=== PATIENT | female | born 1945 | race African-American/Black ===

== ENCOUNTER 2016-12-13 18:00 | Emergency (ER) | payer OTHER ==
[~2016-12-13] VITALS: Ht 160 cm; Wt 48.6 kg
[~2016-12-13 18:00] MED LIST: FERR-89 PO; MULT-71 PO; PANT40TA25 PO; PHENY100 PO
[2016-12-13] MEDS ORDERED: DULO30CA2 PO (18:19)
[2016-12-13] MEDS ORDERED: ACET1TAB12 PO (18:19)
[2016-12-13] MEDS ORDERED: OLAN10TA3 PO (18:19)
[2016-12-13 19:59] LABS: EOSINOPHILS % (AUTO) 0 % (1.0-6.0); HEMOGLOBIN 8.8 g/dL (12.0-16.0); LYMPHOCYTES # (AUTO) 1.3 K/uL (1.0-4.8); LYMPHOCYTES % (AUTO) 25.6 % (22.0-44.0); MEAN CORPUSCULAR HEMOGLOBIN 21.4 pg (26.0-34.0); MEAN CORPUSCULAR HGB CONC 30.2 G/dL (31.0-37.0); MEAN CORPUSCULAR VOLUME 71 fL (80-100); MONOCYTES # (AUTO) 0.9 K/uL (0.1-1.0); MONOCYTES % (AUTO) 18.6 % (2.0-9.0); NEUTROPHILS # (AUTO) 2.7 K/uL (1.8-7.7); NEUTROPHILS % (AUTO) 54.8 % (40.0-70.0); PLATELET COUNT (AUTO) 401 K/uL (150-450); RED BLOOD CELL COUNT(AUTO) 4.09 MIL/uL (4.00-5.20); RED CELL DISTRIBUTION WIDTH 17.8 % (11.5-14.5)
[2016-12-13 20:21] LABS: ANION GAP 8 mmol/L (8-16); CALCIUM, TOTAL 8.5 mg/dL (8.8-10.5); CARBON DIOXIDE 25 mmol/L (22-29); CHLORIDE 99 mmol/L (98-107); CREATININE 0.93 mg/dL (0.60-1.30); GLOMERULAR FILTR. RATE CALC > 60 mL/min (>60); POTASSIUM 4.8 mmol/L (3.5-5.1); SODIUM SERUM 132 mmol/L (136-145); UREA NITROGEN, BLOOD 13 mg/dL (7-18)
[2016-12-13 20:27] LABS: ALANINE AMINOTRANSFERASE 26 U/L (12-78); ASPARTATE AMINOTRANSFERASE 36 U/L (15-37); BILIRUBIN,TOTAL 0.2 mg/dL (0.1-1.0); TOTAL PROTEIN, SERUM 7.8 g/dL (6.4-8.2)
[2016-12-13 20:33] VITALS: BP 137/75
[2016-12-13] MEDS ORDERED: LevETIRAcetam 1,000 MG in DEXTROSE 5%-WATER 100 ML IV ONE (20:45)
[2016-12-13] MEDS ORDERED: PHENYTOIN SODIUM 100 MG ER CAPSULE PO ONE (20:45)
[2016-12-13 21:07] LABS: RBC MORPHOLOGY COMMENT ABNORMAL RBC MORPH
== END 2016-12-13 23:50 | disposition home or self-care (01) ==
LOC: EMS 18:03
DX: G40.909 Epilepsy, unspecified, not intractable, without status epilepticus (principal)
CPT/HCPCS: 36415; 80053; 80185; 80307; 84484; 85025; 96365; 99284; G0480; J0712; J7060

== ENCOUNTER 2017-08-10 21:48 | Emergency (ER) | payer OTHER ==
[~2017-08-10] VITALS: Ht 152.4 cm; Wt 57.0 kg
[~2017-08-10 21:48] MED LIST changes: +ACET1TAB12 PO; +DULO30CA2 PO; -MULT-71 PO; +MULT1TAB70 PO; +OLAN10TA3 PO
[2017-08-10] MEDS ORDERED: [UNRECOGNIZED DRUG - CODE] TD (22:10)
[2017-08-10] MEDS ORDERED: ASPI81 PO (22:10)
[2017-08-10] MEDS ORDERED: RISP2 PO (22:10)
[2017-08-10] MEDS ORDERED: GABA-529 PO (22:10)
[2017-08-10] MEDS ORDERED: LEVE500T53 PO (22:10)
[2017-08-10 23:40] VITALS: BP 121/71
== END 2017-08-10 23:41 | disposition home or self-care (01) ==
LOC: EMS 21:50
DX: H60.91 Unspecified otitis externa, right ear (principal); H66.91 Otitis media, unspecified, right ear
CPT/HCPCS: 99283

== ENCOUNTER 2018-04-15 19:21 | Emergency (ER) | payer MEDICARE, OTHER ==
[~2018-04-15] VITALS: Ht 152.4 cm; Wt 54.9 kg
[~2018-04-15 19:21] MED LIST changes: +ASPI81 PO; +GABA-529 PO; +LEVE500T53 PO; +RISP2 PO; +[UNRECOGNIZED DRUG - CODE] TD
[2018-04-15 19:56] LABS: GLUCOSE,POINT OF CARE 129 MG/DL (70-110)
[2018-04-15 21:24] LABS: AMPHET/METH SCREEN,URINE NEGATIVE (NEGATIVE); BARBITURATE SCREEN, URINE NEGATIVE (NEGATIVE); BENZODIAZEPINES SCREEN,URINE NEGATIVE (NEGATIVE); CANNABINOID SCREEN,URINE NEGATIVE (NEGATIVE); COCAINE SCREEN,URINE NEGATIVE (NEGATIVE); METHADONE SCREEN, URINE NEGATIVE (NEGATIVE); OPIATE SCREEN,URINE NEGATIVE (NEGATIVE)
[2018-04-15 21:25] LABS: BASOPHILS % (AUTO) 0.8 % (0.0-2.0); EOSINOPHILS % (AUTO) 0.5 % (1.0-6.0); HEMATOCRIT 39.7 % (36-46); HEMOGLOBIN 13.6 g/dL (12.0-16.0); LYMPHOCYTES # (AUTO) 1.6 K/uL (1.0-4.8); LYMPHOCYTES % (AUTO) 43.3 % (22.0-44.0); MEAN CORPUSCULAR HGB CONC 34.2 G/dL (31.0-37.0); MEAN CORPUSCULAR VOLUME 93 fL (80-100); MONOCYTES # (AUTO) 0.7 K/uL (0.1-1.0); MONOCYTES % (AUTO) 19.4 % (2.0-9.0); NEUTROPHILS # (AUTO) 1.3 K/uL (1.8-7.7); PLATELET COUNT (AUTO) 259 K/uL (150-450); RED BLOOD CELL COUNT(AUTO) 4.25 MIL/uL (4.00-5.20); RED CELL DISTRIBUTION WIDTH 13.5 % (11.5-14.5)
[2018-04-15 21:25] LABS: APPEARANCE,URINE CLOUDY (CLEAR); BILIRUBIN,URINE NEGATIVE (NEGATIVE); GLUCOSE, URINE (UA) NEGATIVE (NEGATIVE); KETONES,URINE NEGATIVE (NEGATIVE); LEUKOCYTE ESTERASE ,URINE MODERATE (NEGATIVE); NITRATE,URINE POSITIVE (NEGATIVE); OCCULT BLOOD,URINE NEGATIVE (NEGATIVE); PHENCYCLIDINE SCREEN,URINE NEGATIVE (NEGATIVE); PROTEIN,URINE NEGATIVE (NEGATIVE)
[2018-04-15 21:34] LABS: CALCIUM, TOTAL 8.3 mg/dL (8.8-10.5); CREATININE 1.3 mg/dL (0.60-1.30); POTASSIUM 4.2 mmol/L (3.5-5.1)
[2018-04-15 21:36] LABS: PROTHROMBIN TIME 10.7 SEC (9.4-11.6)
[2018-04-15 21:42] LABS: ALBUMIN 2.9 g/dL (3.4-5.0); BILIRUBIN,TOTAL 0.3 mg/dL (0.1-1.0); TOTAL PROTEIN, SERUM 7.8 g/dL (6.4-8.2)
[2018-04-15 21:47] LABS: BACTERIA,URINE Many /HPF (None Seen)
[2018-04-15 21:48] LABS: RBC,URINE None Seen /HPF (0-2); SQUAMOUS EPITHELIAL CELL,UR Few /LPF (None Seen)
[2018-04-15 23:09] VITALS: BP 121/62
== END 2018-04-15 23:12 | disposition home or self-care (01) ==
LOC: EMS 19:23
DX: S00.83XA Contusion of other part of head, initial encounter (principal); N39.0 Urinary tract infection, site not specified; F32.9 Major depressive disorder, single episode, unspecified; Z88.6 Allergy status to analgesic agent; Z79.899 Other long term (current) drug therapy; W01.0XXA Fall on same level from slipping, tripping and stumbling without subsequent striking against object, initial encounter; Y93.89 Activity, other specified; Y92.89 Other specified places as the place of occurrence of the external cause; Y99.8 Other external cause status
CPT/HCPCS: 51702; 70450; 72125; 87086; 93005; 99285